=== PATIENT | male | born 1990 | race Caucasian/White ===

== ENCOUNTER 2018-04-16 02:16 | Emergency (ER) | payer SELFPAY ==
--- NOTE | 2018-04-16 02:19 | ER Report ---
History and Physical Time Seen By MD: 02:18 HPI/ROS CHIEF COMPLAINT: Nursing Home clearance HISTORY OF PRESENT ILLNESS: 27-year-old male brought in by police for shelter clearance. Patient voices no complaints. He voices no significant past medical history. He has slurred speech and behavior consistent with alcohol intoxication. His clothes are somewhat disheveled and dirty. REVIEW OF SYSTEMS: Respiratory: No cough, no dyspnea. Cardiovascular: No chest pain, no palpitations. Gastrointestinal: No vomiting, no abdominal pain. Musculoskeletal: No back pain. Allergies: Coded Allergies: No Known Drug Allergies (Unverified , 04/16/18) Home Meds No Active Prescriptions or Reported Meds Reviewed Nurses Notes: Yes Old Medical Records Reviewed: Yes Constitutional Vital Sign - Last 24 Hours 04/16/18 02:22 Temp 98.6 Pulse 99 B/P (MAP) 147/91 Pulse Ox 96 O2 Delivery Room Air Physical Exam Vital signs stable, afebrile, pulse ox normal General Appearance: The patient is alert, has no immediate need for airway protection and no current signs of toxicity. Palpation of the head and neck reveals no tenderness or trauma HEENT: Pupils equal and round no injection. TMs normal, oropharynx without dental trauma, mucous. Membranes are moist Respiratory: Chest is non tender, lungs are clear to auscultation. No chest wall tenderness Cardiac: regular rate and rhythm Gastrointestinal: Abdomen is soft and non tender, no masses, bowel sounds normal. Musculoskeletal: Neck: Neck is supple and non tender. Extremities have full range of motion and are non tender. Skin: No rashes or lesions. DIFFERENTIAL DIAGNOSIS: After history and physical exam differential diagnosis was considered for shelter clearance, alcohol intoxication, polysubstance abuse Medical Decision Making ED Course/Re-evaluation ED Course Patient was admitted to an examination room. H&P was done. The differential diagnoses was considered. On clinical examination. Patient has no clinical findings. His vital signs are stable. He is medically cleared for shelter admission. Decision to Disposition Date: Apr 16, 2018 Decision to Disposition Time: 02:25 Depart Departure Latest Vital Signs Vital Signs Date Time Temp Pulse Resp B/P (MAP) Pulse Ox O2 Delivery O2 Flow Rate FiO2 04/16/18 02:22 98.6 99 147/91 96 Room Air Impression: Primary Impression: Medical clearance for incarceration Additional Impression: Alcohol intoxication Condition: Improved Disposition: HOME OR SELF-CARE New Scripts No Active Prescriptions or Reported Meds Patient Instructions: Alcohol Intoxication (ED) Additional Instructions: Patient medically cleared for shelter admission Problem Qualifiers Additional Impression: Alcohol intoxication Complication of substance-induced condition: uncomplicated Qualified Codes: F10.920 - Alcohol use, unspecified with intoxication, uncomplicated MARKOS ARREGUIN DO Apr 16, 2018 02:19
[2018-04-16 02:22] VITALS: BP 147/91
== END 2018-04-16 02:31 | disposition home or self-care (01) ==
LOC: ER 02:26
DX: F10.920 Alcohol use, unspecified with intoxication, uncomplicated (principal)
CPT/HCPCS: 99281